=== PATIENT | male | born 1990 | race Caucasian/White ===

== ENCOUNTER 2024-12-16 12:55 | Outpatient (AMB) | payer OTHER, SELFPAY ==
--- NOTE | 2024-12-16 13:03 | AM.OFFWIN_ITS ---
Intake Vital Signs 12/16/24 13:10 Height 5 ft 9 in Weight 179 lb BMI 26.4 BP 114/80 Blood Pressure Location Rt brachial Position Sitting Pulse 64 Pulse Source Pulse Oximeter Pulse Oximetry (%) 98 Oxygen Delivery Method Room Air Intake Visit Reasons: EP-Hernia groin area Intake Note: Patient here for hernia in groin area that has been present since middle of August. Patient Tobacco Use Status: Never used Tobacco Allergies Dust/Mites/Animal dander Allergy (Unknown, Uncoded 12/16/24 13:12) unknown Do you need a note to return to daycare/school/sports/work: No HPI HPI Comments History of Present Illness Details History of Present Illness - The patient is a 34-year-old male pres enting with evaluation of a hernia in hi s left groin - The hernia has developed over the past few months with visible bulging and episodic pain. - The patient experienced severe pain si milar to a stabbing sensation upon exertion but self resolved. - The hernia is manually reducible and r educes when lying down. - Exertional activities exacerbate the c ondition, though typically the pain is not severe. - The hernia occasionally feels firm Physical Exam General: Cooperative, healthy appearing, comfortable, no acute distress and well developed Orientation: Patient oriented x3 Limitations: No limitations Head: Normal to inspection Ears: Hearing grossly normal bilaterally Nose: Normal Nxternal nose present Face and sinus: ormal facial exam Eyes: Appearance normal, both eyes and all related structures Neck: Normal visual inspection and Yes full ROM Respiratory: Normal respiratory effort and able to speak in complete sentences. Skin: No rashes or lesions noted Neuro: Patient oriented x3 Extremities: Normal to inspection, prominent left inguinal hernia noted, reducible [facility] Social History Patient Tobacco Use Status: Never used Tobacco Review of Systems Const All systems reviewed & are unremarkable except as noted in HPI and below Physical Exam Vital Signs: Last Vital Signs Pulse 64 12/16/24 13:10 BP 114/80 12/16/24 13:10 Pulse Ox 98 12/16/24 13:10 Oxygen Delivery Method Room Air 12/16/24 13:10 BMI result Body Mass Index 26.4 Assessment & Plan Assessment & Plan (1) Left inguinal hernia: Code(s): K40.90 - Unilateral inguinal hernia, without obstruction or gangrene, not specified as recurrent Plan: The management of the patient's left inguinal hernia involves planning for pelon gical consultation at [place] to discuss repair options. Until then, the patient is advised to monitor symptoms and reduce the hernia manually. Emergency care is advised if the hernia becomes irreducible or is associated with pain or fever, which could indicate complications thus necessitating emergency surgery. The patient is to avoid activities that exacerbate the condition and watch for symptoms requiring urgent care. A referral to a general surgeon has been arranged via his PCP for formal assessment and planning for surgical intervention. Patient was informed and verbally consented to the use of an ambient scribe for clinic note documentation during this visit. Coding Level of Care Code Est Pt Level 3 (81021) Diagnoses Left inguinal hernia K40.90
[2024-12-16 13:10] VITALS: BP 114/80; PULSE 64; O2SAT 98; BMI 26.4
== END 2024-12-16 14:04 | disposition home or self-care (01) ==
PROVIDERS: PCP Nurse Practitioner Family; Visit Provider Physician Assistant
DX: K40.90 Unilateral inguinal hernia, without obstruction or gangrene, not specified as recurrent (principal)

== ENCOUNTER → 2024-12-16 12:55 | Outpatient (BNVA) | payer OTHER, SELFPAY | PROVIDERS: PCP Nurse Practitioner Family; Visit Provider Physician Assistant ==

== ENCOUNTER 2024-12-31 09:14 | Outpatient (AMB) | payer OTHER, SELFPAY ==
--- NOTE | 2024-12-31 09:20 | A.OFFVIS_ITS ---
Vital Signs 3 12/31/24 09:29 Height 5 ft 9 in Weight 178 lb BMI 26.3 BP 138/70 Blood Pressure Location Lt brachial Position Sitting Pulse 80 Intake Visit Reasons: Unilateral inguinal hernia Intake Note: Patient is seen in office for evaluation of a left inguinal hernia. Pt c/o: onset 5 months, might be due to running or lifting, feels a lump in the area tear , increase in size, reducible, denies n/v/d/c Wellness Rn Required: No Accompanied by: Self / Same As Patient Allergies No Known Allergies Allergy (Verified 12/31/24 09:28) HPI Comments Details: The patient is a 34-year-old male presenting with a left inguinal hernia. He first detected the issue around July or August of last year when he noticed a small bump in the left groin area. There has been a gradual increase in size, with a distinct incident on [place] involving a stabbing pain while ascending stairs, which may have exacerbated the hernia. He denies any previous history of hernias, surgeries, or significant concurrent medical conditions. The patient has not experienced systemic symptoms such as fever or gastrointestinal issues like nausea, vomiting, or changes in stool habits. However, the hernia becomes more apparent with certain actions, such as exertion when urinating or running, prompting him to avoid running as a precautionary measure. COUNTS INCLUDE 234 BEDS AT THE [facility] Social History (Updated 12/31/24 @ 09:29 by AYE Haley) Alcohol intake: current Patient Tobacco Use Status: Never used Tobacco Review of Systems Const Details: - Gastrointestinal: Denies nausea, vomiting, constipation, diarrhea, or bloody stools. - Genitourinary: Denies difficulty urinating or other urinary symptoms but notes increased hernia sensation during urgency to urinate. All systems reviewed & are unremarkable except as noted in HPI and below Physical Exam Vital Signs: Last Vital Signs Pulse 80 12/31/24 09:29 BP 138/70 12/31/24 09:29 BMI result Body Mass Index 26.3 Const General: cooperative and no acute distress Nutritional Appearance: well nourished Orientation/consciousness: patient oriented x3 Limitations: no limitations HEENT Head: Yes normocephalic and Yes atraumatic Ears: hearing grossly normal bilaterally Resp Effort & Inspection: normal respiratory effort, no audible wheezes, no cough and no respiratory distress Cardio Jugular venous distension: no JVD GI Other: Palpable left inguinal hernia, protrusion upon patient?s cough or strain and reducible manually, though occasionally firm and resistant to reduction. Inspection: Yes normal to inspection Abdomen image: 2 1. Skin Other: Warm, dry, no rash Neuro General: patient oriented x3 Extrem General: Yes no clubbing, cyanosis or edema Assessment & Plan Assessment & Plan (1) Left inguinal hernia: Code(s): K40.90 - Unilateral inguinal hernia, without obstruction or gangrene, not specified as recurrent Category: Medical Plan 34-year-old male patient presenting with a palpable hernia in the left groin which increases in size with lifting and straining and reduces with light pressure. I recommended repair of this left inguinal hernia with mesh as a short-stay surgery and after discussion of the procedure, risks, and alternatives, he consents to the surgery. Patient Instructions: - Scheduling for hernia repair surgery will be arranged; expect a call from the air export coordinator. - Prepare for general anesthesia for the procedure. - Avoid vigorous activities until post-surgical assessment and clearance. - If experiencing increased pain or other urgent symptoms, contact our office immediately. - Anticipate some bruising or swelling, which should resolve naturally. - Follow postoperative instructions carefully for recovery. Scribe Plan - Not visible on output: Patient was informed and verbally consented to the use of an ambient scribe for clinic note documentation during this visit. Coding Level of Care Code New Pt Level 4 (37998) Diagnoses Left inguinal hernia K40.90
[2024-12-31 09:29] VITALS: BP 138/70; PULSE 80; BMI 26.3
== END 2024-12-31 09:48 | disposition home or self-care (01) ==
LOC: HO.HGS 09:14
PROVIDERS: PCP Nurse Practitioner Family; Visit Provider Surgery
DX: K40.90 Unilateral inguinal hernia, without obstruction or gangrene, not specified as recurrent (principal)
CPT/HCPCS: 99204

== ENCOUNTER 2025-01-26 13:31 | Outpatient (AMB) | payer OTHER, SELFPAY ==
--- NOTE | 2025-01-26 13:41 | A.OFFPC_ITS ---
Vital Signs 01/26/25 13:42 Height 5 ft 9 in Weight 180 lb BMI 26.6 BP 102/62 Blood Pressure Location Lt brachial Position Sitting Respiration 18 Pulse 72 Pulse Source Pulse Oximeter Temp 97.7 F Temp Source Oral Pulse Oximetry (%) 100 Oxygen Delivery Method Room Air Intake Visit Reasons: Annual PE Intake Note: Pt is here today for PE. Allergies No Known Allergies Allergy (Verified 01/26/25 13:42) Medication List - Last Reconciled 01/26/25 by KRISTY Pitts No Known Home Meds Tobacco use date assessed: 01/26/25 Dental Screening Dental Screen Date: 01/26/25 Did you have a dental visit in the last 12 months?: Yes Did you have a dental problem in the last 6 months where you did not have access to dental care?: No Was dental information given to patient?: Patient has dentist HPI Annual PE HPI Details History of Present Illness The patient is a 34-year-old male presenting for pre-operative evaluation of a left inguinal hernia, which has been present since the fall. The hernia repair has been planned for early February. The patient reports no associated symptoms such as chest pain, respiratory difficulty, gastrointestinal disturbances, or urinary issues. He also denies any suicidal or homicidal ideation. Also her for a PE. Health Maintenance Social History Review of Systems - Respiratory: Denies shortness of breat h. - Gastrointestinal: Denies abdominal saw n, blood in stool, constipation, diarrhea. - Genitourinary: Denies any urinary issu es. - Psychological: Denies suicidal or homi cidal thoughts. Physical Exam General: Cooperative, healthy appearing, comfortable, no acute distress and well developed Orientation: Patient oriented x3 Limitations: No limitations Head: Normal to inspection Ears: Hearing grossly normal bilaterally Nose: Normal external nose present Face and sinus: Normal facial exam Eyes: Appearance normal, both eyes and all related structures Neck: Normal visual inspection and Yes full ROM Respiratory: Normal respiratory effort and able to speak in complete sentences. Clear to auscultation bilaterally Cardiovascular: Regular rate and rhythm. Normal S1 and S2 GI: Normal to inspection. Soft to palpation and nontender gu: left inguinal hernia noted Skin: No rashes or lesions noted Neuro: Patient oriented x3 Extremities: Normal to inspection Results Plan I will conduct an EKG and acquire additional laboratory investigations to complete the pre-operative evaluation for the left inguinal hernia, scheduled for surgical repair in early February. This is to ascertain the patient's readiness for the procedure. Discussion Notes During the visit, I discussed with the patient the plan for obtaining an EKG and further laboratory tests in preparation for the scheduled surgical repair of the left anterior glenohumeral hernia. We reviewed the necessity of these evaluations to ensure successful treatment outcomes and affirmed that the procedure is set for early February. No other interventions were warranted presently. Patient Instructions - Follow the plan for completing an EKG and lab tests as part of the pre-op evaluation. - Attend your scheduled surgical repair for the hernia in early February. - Report any new symptoms or concerns im mediately. PFSH Surgical History [place] teeth extracted Family History Father No problems noted. Mother No problems noted. Social History Housing: Apartment Alcohol intake: current Patient Tobacco Use Status: Never used Tobacco e-Cigarette/Vaping Use: Never Used service: No Current occupational status: employed Cognitive needs: No Hearing needs: No Vision needs: No Questionnaire PHQ-9 Over the last 2 weeks, how often have you been bothered by any of the following problems? 1. Little interest or pleasure in doing things: not at all 2. Feeling down, depressed, or hopeless: not at all 3. Trouble falling or staying asleep, or sleeping too much: not at all 4. Feeling tired or having little energy: not at all 5. Poor appetite or overeating: not at all 6. Feeling bad about yourself - or that you are a failure or have let yourself or your family down: not at all 7. Trouble concentrating on things, such as reading the newspaper or watching television: not at all 8. Moving or speaking so slowly that other people could have noticed. Or the opposite - being so fidgety or restless that you have been moving around a lot more than usual: not at all 9. Thoughts that you would be better off or of hurting yourself in some way: not at all Total score: 0 Depression Screening Interpretation: Negative Depression Screening Done: Yes 23544 - PHQ-9 Billing: Yes Source: Developed by Drs. Nathaniel Osorio, Stacie Vega, Stevie Montanez and colleagues, with an educational chris from [employer]. Thrive Questionnaire Date Thrive assessed: 01/26/25 I am a: Patient What is your living situation today?: I have a steady place to live Within the past 12 months, did the food you bought not last and you didn't have the money to get more?: Never true Within the past 12 months, did you worry whether your food would run out before you got money to buy more?: Never true Do you have trouble paying for medicines?: No Do you have trouble getting transportation to medical appointments?: No Do you have trouble paying your heating and electricity bill?: No Do you have trouble taking care of your child, family member or friend?: No Do you have trouble with day-to-day activities such as bathing, preparing meals, shopping, managing finances, etc.?: No Are you currently unemployed and looking for a job?: No Are you interested in more education?: No Please select the resources that you would like help with: None Currently or been in a relationship where the following occur: No concerns reported THRIVE Score: 0 AUDIT C Alcohol Use Questionnaire (AUDIT-C) 1. How often do you have a drink containing alcohol?: 2-4 times a month 2. How many drinks containing alcohol do you have on a typical day when you are drinking?: 3 or 4 3. How often do you have six or more drinks on one occasion?: Less than monthly Total Score: 4 Score Reviewed/Action Taken: Yes RACHEL-7 AMB Questionnaire RACHEL-7 Date RACHEL - 7 assessed: 01/26/25 Feeling nervous, anxious, or on edge: 0 = Not at all Not being able to stop or control worryin = Not at all Worrying too much about different things: 0 = Not at all Trouble relaxin = Not at all Being so restless that it is hard to sit still: 0 = Not at all Becoming easily annoyed or irritable: 0 = Not at all Feeling afraid as if something awful might happen: 0 = Not at all Total RACHEL-7 score (0-4 normal; 5-9 mild; 10-14 moderate; 15-21 severe): 0 Source: Developed by Drs. Nathaniel Osorio, Stacie Vega, Stevie Montanez and colleagues, with an educational chris from [employer]. RACHEL-7 Assessment Billing RACHEL-7 Assessment Tool: RACHEL-7 Assessment 72089 Physical exam (Primary Care) Vital Signs: Last Vital Signs Temp 97.7 F 01/26/25 13:42 Pulse 72 01/26/25 13:42 Resp 18 01/26/25 13:42 BP 102/62 01/26/25 13:42 Pulse Ox 100 01/26/25 13:42 Oxygen Delivery Method Room Air 01/26/25 13:42 BMI result Body Mass Index 26.6 Tobacco/Smoking Status: Tobacco use Status Tobacco use date assessed 01/26/25 01/26/25 13:48 Patient Tobacco Use Status Never used Tobacco 01/26/25 13:48 e-Cigarette/Vaping Use Never Used 01/26/25 13:48 PHQ-9: PHQ-9 Score PHQ-9: Total score 0 01/26/25 13:48 Depression Screening Interpretation: Negative Thrive Assessment: Date of Thrive Assessment Date Thrive assessed 01/26/25 01/26/25 13:48 Currently or been in a relationship where the following occur: No concerns rep orted Coding Level of Care Code Est Pt Prev Care 18-39y(17747) Diagnoses Encounter for routine adult physical exam with abnormal findings Z00. Left inguinal hernia K40.90 Pre-op evaluation Z01.818 Additional Codes RACHEL-7 Assessment Billing - RACHEL-7 Assessment Tool: RACHEL-7 Assessment 59665 ([id number]) PHQ-9 - 81630 - PHQ-9 Billing: Yes ([id number]) Assessment & Plan Assessment & Plan (1) Encounter for routine adult physical exam with abnormal findings: Code(s): Z00.01 - Encounter for general adult medical examination with abnormal findings Category: Medical (2) Left inguinal hernia: Code(s): K40.90 - Unilateral inguinal hernia, without obstruction or gangrene, not specified as recurrent Category: Medical (3) Pre-op evaluation: Code(s): Z01.818 - Encounter for other preprocedural examination Category: Medical Plan . Orders: Orders Comprehensive [place]. Panel Fast Today Z00.01 - Encounter for general adult medical examination with abnormal findings TSH reflex Free T4 Today Z00. - Encounter for general adult medical examination with abnormal findings Lipid Panel Today Z00.01 - Encounter for general adult medical examination with abnormal findings Prothrombin Time INR Today K40.90 - Unilateral inguinal hernia, without obstruction or gangrene, not specified as recurrent Complete Blood Count Auto Diff Today Z00.01 - Encounter for general adult medical examination with abnormal findings UA CC w/rflx Micro + Cult Today Z00.01 - Encounter for general adult medical examination with abnormal findings Partial Thromboplastin Time Today K40.90 - Unilateral inguinal hernia, without obstruction or gangrene, not specified as recurrent AMB EKG-In Office Today Z01.818 - Encounter for other preprocedural examination
[2025-01-26 13:42] VITALS: BP 102/62; PULSE 72; RESP 18; TEMP 36.5; O2SAT 100; BMI 26.6
== END 2025-01-26 14:40 | disposition home or self-care (01) ==
LOC: HO.HMCC 13:32
PROVIDERS: PCP Nurse Practitioner Family; Visit Provider Nurse Practitioner Family
DX: Z00.01 Encounter for general adult medical examination with abnormal findings (principal); K40.90 Unilateral inguinal hernia, without obstruction or gangrene, not specified as recurrent; Z01.818 Encounter for other preprocedural examination

== ENCOUNTER → 2025-01-26 13:31 | Outpatient (BNVA) | payer OTHER, SELFPAY | PROVIDERS: PCP Nurse Practitioner Family; Visit Provider Nurse Practitioner Family | DX: Z01.818 Encounter for other preprocedural examination (principal); K40.90 Unilateral inguinal hernia, without obstruction or gangrene, not specified as recurrent | CPT/HCPCS: 96127 ==

== ENCOUNTER 2025-02-08 06:55 | Outpatient (REF) | payer OTHER, SELFPAY ==
[2025-02-08 10:12] LABS: Appearance Urine Clear; Color Urine Yellow; Glucose Urine UA Negative (Negative); Leukocyte Esterase Urine Negative (Negative); Nitrite Urine Negative (Negative); Urine Blood Negative (Negative); Urine Ketones Negative (Negative); Urine Protein Negative (Neg-Trace)
[2025-02-08 10:33] LABS: MANUAL DIFF FLAG NO
[2025-02-08 10:42] LABS: Basophils Percent Auto 0.9 % (0-2); Eosinophils Absolute Auto 0.1 X10*3/uL (0.0-0.4); Eosinophils Percent Auto 2.5 % (0-4); Hematocrit 45.1 % (42.0-52.0); Hemoglobin 15.8 g/dl (14.0-18.0); Imm Gran Abs Auto 0.01 X10*3/uL (0.00-0.03); Imm Gran Pct Auto 0.2 % (0.0-0.4); Lymphocytes Absolute Auto 1.5 X10*3/uL (1.2-4.9); Lymphocytes Percent Auto 32.8 % (20-40); Mean Corpuscular Hemoglobin 32.4 pg (27.0-33.0); Mean Corpuscular Volume 92.4 fL (80.0-98.0); Mean Platelet Volume 8.7 fL (9.4-12.4); Monocytes Absolute Auto 0.3 X10*3/uL (0.1-1.2); Monocytes Percent Auto 7.7 % (2-11); Neutrophils Absolute Auto 2.5 x10*3/uL (2.0-8.3); Neutrophils Percent Auto 55.9 % (45-73); Platelet Count 225 X10*3/uL (160-400); Red Blood Count 4.88 X10*6/uL (4.60-5.80); Red Cell Distribution Width 11.6 % (11.0-16.0); White Blood Count 4.4 X10*3/uL (4.8-10.8)
[2025-02-08 10:44] LABS: INTERNATIONAL NORM RATIO 0.9 (0.9-1.1); Prothrombin Time 10.5 SEC (10.9-12.4)
[2025-02-08 10:47] LABS: Partial Thromboplastin Time 33.9 SEC (26.0-36.8)
[2025-02-08 10:52] LABS: Anion Gap 11 (12-20)
[2025-02-08 11:09] LABS: Alanine Aminotransferase 21 U/L (0-40); Albumin Level 4.3 g/dL (3.5-5.0); Alkaline Phosphatase 53 U/L (39-117); Aspartate Amino Transferase 24 U/L (5-37); Bilirubin Total 0.7 mg/dL (0.0-1.0); Blood Urea Nitrogen 22 mg/dL (9-16); Calcium 9.4 mg/dL (8.4-10.2); Carbon Dioxide 27 mmol/L (22-29); Chloride 107 mmol/L (96-108); Cholesterol 208 mg/dL (<200); Estimated Glomerular Filt Rate > 60; Glucose Fasting 88 mg/dL (60-99); Potassium 3.9 mmol/L (3.3-5.1); Sodium 141 mmol/L (135-145); Triglycerides 85 mg/dL (<150)
[2025-02-08 11:39] LABS: HDL Cholesterol 58 mg/dL (>40); LDL Cholesterol Calculated 133 mg/dL (<100); TSH reflex Free T4 2.48 uIU/mL (0.32-4.0)
== END 2025-02-08 06:56 | disposition home or self-care (01) ==
LOC: HO.HMGCLDS 06:55
PROVIDERS: PCP Nurse Practitioner Family; Visit Provider Nurse Practitioner Family
DX: Z00.01 Encounter for general adult medical examination with abnormal findings (principal); K40.90 Unilateral inguinal hernia, without obstruction or gangrene, not specified as recurrent; Z79.01 Long term (current) use of anticoagulants; Z13.6 Encounter for screening for cardiovascular disorders
CPT/HCPCS: 36415; 80053; 80061; 81003; 84443; 85025; 85610; 85730

== ENCOUNTER 2025-02-14 06:41 | Day surgery (SDC) | payer OTHER, SELFPAY ==
[2025-02-10 08:48] VITALS: BMI 26.3
--- NOTE | 2025-02-10 12:33 | P.CONAN_ITS ---
Documented by User: Alexa Paul NP 02/10/25 12:33 HPI - Anesthesia Eval Consult details Narrative: 34yo M for Hernia Inguinal Reducible with mesh PMFSH Active Problems Active Problems: All Active Problems Leukocytosis (Acute) Pre-op evaluation (Acute) Encounter for routine adult physical exam with abnormal findings (Acute) Left inguinal hernia (Acute) Past Medical History Medical History Leukocytosis Family History Family History Father No problems noted. Mother No problems noted. Surgical History Surgical History [place] teeth extracted Social History Social History Housing: Apartment Alcohol intake: current Alcohol intake frequency: holidays/special occasions only Patient Tobacco Use Status: Never used Tobacco e-Cigarette/Vaping Use: Never Used Second Hand Smoke Exposure: No Use of substances other than those prescribed or required for medical reasons: No Have you been hit, kicked, punched, or otherwise hurt by someone within the past year? If so, by whom?: No Are you DNR?: No Advance Directives: No Advance Directives Information Provided: Yes Advance Directives on File: No Poor oral hygiene: No service: No Current occupational status: employed Cognitive needs: No Hearing needs: No Vision needs: No Meds Allergies Allergy/AdvReac Type Severity Reaction Status Date / Time No Known Allergies Allergy Verified 01/26/25 13:42 Home Medications ?Medication ?Instructions ?Recorded ?Confirmed ?Last Taken ?Type No Known Home Meds 12/16/24 01/26/25 Unknown History Exam Height,Weight and Vital Signs: Height 5 ft 9 in Weight 80.739 kg Assessment and Plan Assessment Anesthesia Assessment: Chart Reviewed Documented by User: Jody Clifton MD 02/14/25 08:10 PMFSH Past Medical History Medical History Leukocytosis Family History Family History Father No problems noted. Mother No problems noted. Family history of problems with anesthesia: No Surgical History Surgical History [place] teeth extracted History of Problems with Anesthesia: No Social History Social History Housing: Apartment Alcohol intake: current Alcohol intake frequency: holidays/special occasions only Patient Tobacco Use Status: Never used Tobacco e-Cigarette/Vaping Use: Never Used Second Hand Smoke Exposure: No Use of substances other than those prescribed or required for medical reasons: No Have you been hit, kicked, punched, or otherwise hurt by someone within the past year? If so, by whom?: No Are you DNR?: No Advance Directives: No Advance Directives Information Provided: Yes Advance Directives on File: No Poor oral hygiene: No service: No Current occupational status: employed Cognitive needs: No Hearing needs: No Vision needs: No Meds Allergies Allergy/AdvReac Type Severity Reaction Status Date / Time No Known Allergies Allergy Verified 01/26/25 13:42 Home Medications ?Medication ?Instructions ?Recorded ?Confirmed ?Last Taken ?Type No Known Home Meds 12/16/24 01/26/25 Unknown History Exam Airway Mallampati Class: II TM Dist: >3cm Neck ROM: Full Heart: rrr Lungs: cta Assessment and Plan Assessment Anesthesia Assessment: Anesthesia Plan Discussed Final Anesthetic Review Family History of Problems with Anesthesia: No History of Problems with Anesthesia: No NPO: Yes ASA Class: I Final Preanesthetic Review: No Changes in Pt Med Stat, Meds/Allgs Chart Reviewed, Consent Obtained/Reviewed and Anes Risks/Benef Reviewed Patient Risk: Low Procedure Risk: Low Anesthetic Plan Anesthetic Plan: GA Disposition: Standard PACU
[2025-02-14] VITALS (7 sets, daily range): BP systolic 108–123; BP diastolic 61–78; PULSE 64–77; RESP 16; TEMP 36.3–36.6; O2SAT 99–100
[2025-02-14] MEDS: Lactated Ringers 1,000 ML 100 ML IVCONT (07:31)
--- NOTE | 2025-02-14 08:26 | MHC.SHP ---
Pre-Procedural Eval Section A - 24 Hr Update-Section A only Date of Service: 02/14/25 The patient is an INPATIENT: No Changes since office visit: Yes Patient answered all questions; No Cold of Flu in the past 2 weeks, No New Medical Problems and No Changes in Medication The patient has been examined within 24 hours of the surgical procedure. The History & Physical has been completed within 30 days and I have reviewed it.: No Section B - Complete if H&P > 30 days Chief Complaint: Unilateral inguinal hernia, without obstruction or Details of Present Illness: No change in his abdominal symptoms. Continues to feel the left inguinal hernia Relevant Family History (Specify if Yes): No Relevant Social History: Alcohol Use Present Medications: see Short Stay Collaborative assessment Medical History: No relevant PMH History of Previous Operations: No relevant previous surgery Allergies: Allergies Allergy/AdvReac Type Severity Reaction Status Date / Time No Known Allergies Allergy Verified 01/26/25 13:42 Review of Systems Sugical H&P ROS: Negative: Constitution, Cardiovascular, Respiratory, Neurological, Psychiatric, Allergic/Immunologic, Gastrointestinal, Genitourinary, Musculoskeletal and Integumentary Exam Surgical H&P Exam: Normal: HEENT, Normal: Heart, Normal: Lungs, Normal: Extremities, Normal: Abdomen and Normal: Skin Plan Diagnosis/Plan: Unchanged I have reviewed the history and physical and performed a pertinent physical examination on my patient. No changes have occurred unless specified. Time Spent With Patient Time: Total time managing care of this patient today ____ minutes.
--- NOTE | 2025-02-14 09:58 | P.OP_ITS ---
Operative Note Operative Note Date of Service: 02/14/25 Narrative: Preoperative diagnosis: Left inguinal hernia, reducible Postoperative diagnosis: Same Procedure: Repair of left inguinal hernia with mesh, reducible Surgeon: Brice Cazares MD Oil Lease Operator: Zoe Leal PA-C; Richie Hook PA-C, MEI Armenta Anesthesia: General endotracheal Indications for procedure: 34-year-old male patient presenting with a reducible left inguinal hernia Operative findings:inguinal hernia, indirect, reducible Specimen: Hernia sac, lipoma of the cord Estimated blood loss: Less than 2 mL Complications: None Procedure details: Patient was brought to the OR placed in a supine position. After administering general anesthesia the patient's abdomen was prepped with ChloraPrep and draped in a sterile fashion. A surgical time-out was called the consent confirmed. Patient received preoperative antibiotics and Venodyne boots were in place. Local anesthesia consisting of 0.5% Sensorcaine was infiltrated over the left inguinal ligament. Incision was then made with a scalpel carried out through subcutaneous tissue, past Telma's fashion up to the external oblique aponeurosis. Additional local was infiltrated below the external oblique aponeurosis. This was then incised with a scalpel widened with the Metzenbaum scissors. Spermatic cord was then dissected free from the surrounding inguinal canal retracted using a [place] drain. The floor of the inguinal canal was found to be intact. Fibers of the cremaster muscle were then . A large hernia sac was then identified with the contents reduced. Also a small lipoma was noted adjacent to this. The sac was dissected down to the inguinal internal ring. The sac was opened and its contents reduced. The sac was then ligated using a 0 Polysorb suture and the sac excised. This was sent to pathology as a specimen. The lipoma was also dissected down to the internal ring and resected here this was ligated using a 3-0 Polysorb tie. A attention was then directed to the floor of the inguinal canal. Fibers of the internal oblique and transversalis were opened using electrocautery. The preperitoneal space was then entered. This was then widened with an open Ray- Cristiana sponge. A large extended PHS mesh was then obtained. The circular underlay was deployed within the preperitoneal space. The overlay was then secured to the pubic tubercle, conjoined tendon, and shelving edge of the inguinal ligament using a 0 Polysorb suture. A slit was made in the mesh in the mesh wrapped around the spermatic cord at the internal ring. This was then secured to the shelving edge using the 0 Polysorb suture. The remainder of the mesh was placed below the external oblique aponeurosis laterally. The wounds were then irrigated with saline solution and suctioned dry. Wounds were checked for hemostasis. External oblique aponeurosis was then closed using a running 2-0 Polysorb suture. Approximately 6 mL of Zenrelef was then instilled below the external oblique. Telma's fascia and dermis were then reapproximated using interrupted 3-0 Polysorb sutures. Skin was then closed using a running subcuticular 4-0 Polysorb suture. Sterile dressings including Steri-Strips, 4 x 4 gauze and Tegaderm were then applied. The patient tolerated the procedure well. Sponge, instrument, and needle counts were reported as correct. The patient was transferred to PACU in stable condition.
[2025-02-14] MEDS: Acetaminophen 325 MG TABLET 975 MG PO (11:15)
== END 2025-02-14 11:48 | disposition home or self-care (01) ==
PROVIDERS: PCP Nurse Practitioner Family; Visit Provider Surgery
PROC: (CPT 49505; principal; 2025-02-14 08:50)
DX: K40.90 Unilateral inguinal hernia, without obstruction or gangrene, not specified as recurrent (principal); D17.6 Benign lipomatous neoplasm of spermatic cord
CPT/HCPCS: 49505; 88302; 88304; C1781; C9088; J0690; J1100; J2003; J2405; J2704; J3010

== ENCOUNTER → 2025-02-14 06:41 | Outpatient (BNV) | payer OTHER, SELFPAY | PROVIDERS: PCP Nurse Practitioner Family; Visit Provider Surgery | DX: K40.90 Unilateral inguinal hernia, without obstruction or gangrene, not specified as recurrent (principal); D17.6 Benign lipomatous neoplasm of spermatic cord | CPT/HCPCS: 49505; 55520 ==

== ENCOUNTER 2025-02-25 12:14 | Outpatient (AMB) | payer OTHER, SELFPAY ==
--- NOTE | 2025-02-25 12:48 | MHC.OFFVIS ---
Vital Signs 02/25/25 12:51 BP 98/66 Intake Visit Reasons: S/P LIH w/mesh (Dr. Cazares's Pt.) Intake Note: Patient here s/p repair of left inguinal hernia with mesh. Reports incision healing well. 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 Cazares's Pt.): Details: Patient reports he is doing well, he is not experiencing any pain at this point. He reports his appetite and bowel habits have returned to baseline. He denies fever, chills, chest pain, shortness of breath. He has no further concerns. He does report that he has returned to work however does not do any heavy lifting. He works at [employer], however he has been having his other coworkers do lifting for him if necessary. He has questions about returning to sexual activity [facility] Medical History Leukocytosis Surgical History H/O left inguinal hernia repair (02/14/25) [place] teeth extracted Family History Father No problems noted. Mother No problems noted. Social History Housing: Apartment Alcohol intake: current Alcohol intake frequency: holidays/special occasions only Patient Tobacco Use Status: Never used Tobacco e-Cigarette/Vaping Use: Never Used Second Hand Smoke Exposure: No service: No Current occupational status: employed Cognitive needs: No Hearing needs: No Vision needs: No Physical Exam Vital Signs: Last Vital Signs BP 98/66 02/25/25 12:51 Const General: healthy appearing, comfortable and no acute distress Resp Effort & Inspection: normal respiratory effort and able to speak in complete sentences GI Other: Left inguinal hernia incision site present. Steri-Strips remain in place. No evidence of surrounding erythema, fluid collection. No evidence of hernia recurrence at this time Inspection: No distended Palpation (GI): Soft to palpation, not firm, nontender, no guarding and not rigid Assessment & Plan Assessment & Plan (1) S/P inguinal hernia repair: Comment: Left Code(s): Z98.890 - Other specified postprocedural states; Z87.19 - Personal history of other diseases of the digestive system Category: Surgical Plan 34-year-old male s/p left inguinal hernia repair with mesh on 02/14/2025 presenting to the office for routine follow-up. Patient is doing very well, is not experiencing any pain. Bowel function and appetite at baseline. Incision site appears clean dry and intact. Steri-Strips remain in place, instructed patient that he can remove these in the shower. No concern for infection at this time. We discussed his continued restrictions on heavy lifting, no more than 15-20 lb. We also discussed returning to sexual activity for which I recommended that the patient avoid sexual activity until we remove activity restrictions. This will likely remain in place until his follow-up visit in about 3 weeks. Patient agreeable to plan. Patient understands he can follow-up as needed sooner for any concerns or questions . Surgical pathology as follows: Fibromembranous tissue with mesothelial lining consistent with hernia sac; portion of lobulated mature adipose tissue consistent with lipoma Coding Level of Care Code Global (45086) Diagnoses S/P inguinal hernia repair Z98.890; Z87.19
[2025-02-25 12:51] VITALS: BP 98/66
== END 2025-02-25 12:51 | disposition home or self-care (01) ==
LOC: HO.HGS 12:15
PROVIDERS: PCP Nurse Practitioner Family
DX: Z98.890 Other specified postprocedural states (principal); Z87.19 Personal history of other diseases of the digestive system
CPT/HCPCS: 99024

== ENCOUNTER → 2025-02-25 12:14 | Outpatient (BNVA) | payer OTHER, SELFPAY | PROVIDERS: PCP Nurse Practitioner Family ==

== ENCOUNTER 2025-03-17 08:52 | Outpatient (AMB) | payer OTHER, SELFPAY ==
--- NOTE | 2025-03-17 08:54 | MHC.OFFVIS ---
Vital Signs 03/17/25 09:00 Height 5 ft 9 in Weight 179 lb 2 oz BMI 26.4 BP 117/77 Blood Pressure Location Lt brachial Position Sitting Pulse 74 Intake Visit Reasons: 3 wk f/u S/P LIH w/mesh (Dr. Cazares's Pt.) Intake Note: Patient is seen in office for 3 weeks follow up visit, post left inguinal hernia repair. Pt c/o: denies any concerns Admissions Director Required: No Accompanied by: Self / Same As Patient Allergies No Known Allergies Allergy (Verified 03/17/25 08:59) HPI HPI 3 wk f/u S/P LIH w/mesh (Dr. Cazares's Pt.): Details: Patient doing well. Has no concerns at this time. Denies pain. Reports bowel function and appetite are at baseline. Denies heavy lifting, would like to resume activity, plans to slowly work up towards his baseline over the next couple months. PFSH Medical History Leukocytosis Surgical History H/O left inguinal hernia repair (02/14/25) [place] teeth extracted Family History Father No problems noted. Mother No problems noted. Social History Housing: Apartment Alcohol intake: current Alcohol intake frequency: holidays/special occasions only Patient Tobacco Use Status: Never used Tobacco e-Cigarette/Vaping Use: Never Used Second Hand Smoke Exposure: No service: No Current occupational status: employed Cognitive needs: No Hearing needs: No Vision needs: No Review of Systems Const All systems reviewed & are unremarkable except as noted in HPI and below Physical Exam Vital Signs: Last Vital Signs Pulse 74 03/17/25 09:00 BP 117/77 03/17/25 09:00 BMI result Body Mass Index 26.4 Const General: healthy appearing, comfortable and no acute distress Orientation/consciousness: patient oriented x3 Resp Effort & Inspection: normal respiratory effort and able to speak in complete sentences GI Other: Left inguinal hernias incision site appears intact, no surrounding erythema no palpable fluid collection, nontender. No recurrence with increased abdominal pressure. Palpation (GI): Soft to palpation and nontender Neuro General: patient oriented x3 Assessment & Plan Assessment & Plan (1) S/P inguinal hernia repair: Comment: Left Code(s): Z98.890 - Other specified postprocedural states; Z87.19 - Personal history of other diseases of the digestive system Category: Surgical Plan 34-year-old male status post left inguinal hernia repair on 02/14/2025 presenting for 1 month follow-up. Patient is doing well, not experiencing any pain. On exam the incision appears to be healing well, no concern for infection at this time. No evidence of recurrence with increased abdominal pressure. Incision site is nontender to palpation. We discussed returning to activity, patient is okay to return to activity without restrictions, I recommended slowly working towards his baseline level of activity as tolerated. We also discussed returning to sexual activity, I did not have any restrictions for him at this time however recommended slowly returning towards his baseline level of sexual activity. Patient does not need to follow-up in the office unless he has any future concerns. Patient can follow up as needed. Coding Level of Care Code Global (97196) Diagnoses S/P inguinal hernia repair Z98.890; Z87.19 Time Spent (min) 30
[2025-03-17 09:00] VITALS: BP 117/77; PULSE 74; BMI 26.4
== END 2025-03-17 09:03 | disposition home or self-care (01) ==
LOC: HO.HGS 08:53
PROVIDERS: PCP Nurse Practitioner Family
DX: Z98.890 Other specified postprocedural states (principal); Z87.19 Personal history of other diseases of the digestive system
CPT/HCPCS: 99024

== ENCOUNTER → 2025-03-17 08:52 | Outpatient (BNVA) | payer OTHER, SELFPAY | PROVIDERS: PCP Nurse Practitioner Family ==